=== PATIENT | male | born 1975 | race Caucasian/White ===

== ENCOUNTER → 2017-04-27 | Outpatient (CLI) | payer OTHER | END | disposition home or self-care (01) | LOC: C.RDSM 09:18 | PROVIDERS: ATTEND Orthopaedic Surgery Sports Medicine | DX: M25.572 Pain in left ankle and joints of left foot (principal) ==

== ENCOUNTER → 2017-07-22 | Day surgery (SDC) | payer OTHER ==
[2017-07-19 11:42] VITALS: Ht 175.3 cm; Wt 109.1 kg
[~2017-07-22] VITALS: Ht 175.3 cm; Wt 109.1 kg
[~2017-07-22] MED LIST: ATROPINE SULFATE 0.1 MG/ML 5ML SYR IV PRN; BUPIVACAINE/EPINEPHRINE 0.25% 1:200,000 30 ML VIAL ONE; BUPIVACAINE/EPINEPHRINE 0.5% MPF 1:200,000 30 ML VIAL ONE; CEFAZOLIN 2000MG IV PUSH 10 ML IV SCH; DEXAMETHASONE SOD INJ 4 MG/ML VIAL ONE; EpHEDrine SULFATE INJ 50 MG/ML AMP IV PRN; FENTANYL CITRATE INJ 50 MCG/1 ML 2 ML VIAL IV PRN; FENTANYL CITRATE INJ 50 MCG/1 ML 2 ML VIAL ONE; LACTATED RINGER'S 1000ML 1,000 ML IV SCH; LIDOCAINE HCL 1% 20 ML VIAL ONE; LIDOCAINE HCL 2% 2 ML VIAL (20MG/ML) ONE; MIDAZOLAM HCL 1 MG/ML 2ML VIAL ONE; MoRPHine SULFATE 2 MG/ML CARP IV PRN; MoRPHine SULFATE 4 MG/ML 1 ML CARP\\VIAL IV PRN; ONDANSETRON INJ 2 MG/ML 2 ML VIAL IV PRN; ONDANSETRON INJ 2 MG/ML 2 ML VIAL ONE; OXYCODONE/ACETAMINOPHEN 5-325 TAB PO PRN; PROPOFOL IV EMULSION 10 MG/ML 20 ML VIAL IV ONE
--- NOTE | 2017-07-22 09:38 | History and Physical ---
History & Physical Date of Service Jul 22, 2017. History & Physical Chief Complaint: Left ankle pain HPI: This 41 yo M is an inmated at [facility] with complaint of hardware protrusion from Left ankle. Pt had prior Lt ankle ORIF. Pt c/o pain with activity. Pt was evaluated by Dr. Galaviz at [facility] on 04/27/2017, had x-rays performed and discussed surgical intervention to alleviate his issue. Pt denies any new/recent injury, open skin areas, discharge, numbness or tingling or calf pain. Past Medical History 1. Bipolar disorder 2. Low back pain Past Surgical History 1. Lumbar spine 2. Left ankle ORIF 3. Nasal surgery 4. Stomach surgery Family History: Noncontributory Social History: Denies alcohol, tobacco or illicit drug use Medications: None Allergies: NKDA ROS: Denies headache, chest pain, SOB, fever, chills or night sweats. Physical Exam: General: well-built male with no acute distress, pleasant, accompanied by 2 correctional officers. HEENT: head atraumatic and Normocephalic. Eyes: PERRLA with EOM intact Ears: Clear of cerumen with intact TM's Nose: [place] boggy turbs w/o rhinorrhea Throat: Posterior oropharynx normal in appearance w/o edema, erythema or exudate Cardiac: regular rate and rhythm with absence of murmurs or gallops Lungs: Clear to auscultation throughout with absence of wheezing, rales or rhonchi. Abdomen: soft, non-obese, non-distended with normoactive bowel sounds. Extremities: Left ankle: significant protrusion of distal most screw about distal fibula with tenderness to palpation. No open areas, discharge, erythema, ecchymosis or warmth appreciated. Neuro: CN II-XII intact with no motor or sensory deficit noted Psych: A&O x 3 with proper grooming and hygiene. X-rays: post surgical changes with plate and screw fixation about left distal fibula. Distal screw appears loose and protruding. No acute fx/derangement. Diagnosis: Loose retained hardware, left ankle Procedure: Hardware removal Left ankle Plan: Pt will undergo this procedure with Dr. Chaparro Galaviz [place] [facility]. Risks and complications of the surgery were discussed with Dr. Galaviz at patients clinic visit. Pt understood and agreed, and consent form was signed. At this point there is no clinic indication for preoperative testing or medical clearance. Pt has a set of crutches and will possibly be given an Rx for Rolfe 5/325mg for postoperative pain control. F/u with Dr. Galaviz in 2 wks for suture removal. Ice, elevate and rest after surgery. With any questions have medical staff at [facility] contact our clinic at .
--- NOTE | 2017-07-22 12:24 | Discharge Instructions-SurgCtr ---
Discharge Instructions Date of Service Jul 22, 2017. Visit Reason for Visit: Left Ankle Loose Retained Hardware Discharge Discharge Diagnosis / Problem: Status post Hardware removal Left ankle Discharge Goals Goal(s): Decrease discomfort Activity Recommendations Activity Limitations: per Instructions/Follow-up section Exercise/Sports Limitations: gradually increase as tolerated May Resume Sexual Activity: when tolerated Shower/Bathe: may shower/bathe in 3 days Weightbearing Status: Right weightbearing (as tolerated) Anesthesia . Post Anesthesia Instructions: If you have had General Anesthesia or IV Sedation: * Do not drive today. * Resume driving when surgeon permits. * Do not make important decisions or sign legal documents today. * Call surgeon for: 1. Temperature elevations greater than 101 degrees F. 2. Uncontrollable pain. 3. Excessive bleeding. 4. Persistent nausea and vomiting. 5. Medication intolerance (nausea, vomiting or rash). * For nausea and vomiting use only clear liquids such as: tea, soda, bouillon until nausea subsides, then gradually increase diet as tolerated. * If you have any concerns or questions, call your surgeon's office. If physician is unavailable and it is an emergency, call 911 or go to the nearest emergency room. . Instructions / Follow-Up Instructions / Follow-Up Dr. Galaviz in 10-15 days. Diet Recommendations Home Diet: resume previous diet Procedures Procedures Performed: Removal Hardware Right ankle Pending Studies Studies pending at discharge: no Medical Emergencies . Who to Call and When: Medical Emergencies: If at any time you feel your situation is an emergency, please call 911 immediately. . Non-Emergent Contact Non-Emergency issues call your: Surgeon Call Non-Emergent contact if: temperature is above 101.5, your pain is not controlled, wound has increased drainage, wound has increased redness . . "Provider Documentation" section prepared by Chaparro Galaviz. .
[2017-07-22 12:40] VITALS: BP 126/76; PULSE 60; TEMP 36.5; O2SAT 95
--- NOTE | 2017-07-22 12:47 | [facility] Post Operative Brief Note ---
Immediate Operative Summary Operative Date Jul 22, 2017. Pre-Operative Diagnosis Retained hardware Left ankle Post-Operative Diagnosis Same Procedure(s) Performed Removal Hardware Left ankle Surgeon Anastacia Media Monitor Surgeon(s) Hilda Estimated Blood Loss 2 Findings Hypertrophied soft tissue around most inferior screw Left ankle. No evidence of infection. Fluids (cc crystalloids) 700 Specimens Soft tissue Left ankle Drains n/a Anesthesia Local + sedation Complication(s) None Disposition Recovery Room / PACU (Stable)
--- NOTE | 2017-07-22 12:48 | [facility] Operative Report ---
Operative Report Operative Date Jul 22, 2017. Pre-Operative Diagnosis Retained hardware Left ankle Post-Operative Diagnosis Same Procedure(s) Performed Removal Hardware Left ankle Surgeon Anastacia Senior Risk Analyst Surgeon(s) Hilda Estimated Blood Loss 2 Findings No evidence of infection. Prominent screw at the most distal aspect of the ankle, previous ORIF, was encapsulated with hypertrophic soft tissue. Fluids (cc crystalloids) 700 Specimens Soft tissue Left ankle Drains n/a Anesthesia Local + sedation Complication(s) None Disposition Recovery Room / PACU (Stable) Implants n/a Indications The patient is a 42 male with a history of previous left ankle open reduction internal fixation, with painful retained hardware, that is very prominent and has backed out approximately 50% on x-ray. The patient understands the risks of surgery, which include but are not limited to: bleeding, infection, re- operation, damage to nerves and arteries, continued pain, being unable to remove all of the hardware, and DVT. The patient understands all of these instructions and explanations, all of their questions have been satisfactorily addressed. The patient has elected to proceed with surgery and the informed consent was signed. Description of Procedure The patient was taken to the Operating Room and placed in the supine position on the operating table. After local sedation had taken appropriate affect, a multidisciplinary time-out was performed identifying my initials on the left limb as the correct and operative limb. Prior to any incisions, 2 grams of intravenous Ancef were given. The left leg was prepped and draped in the usual Orthopaedic sterile fashion. The area directly over the most prominent aspect of the screw laterally was marked. The planned incision approximately 1 cm and a superficial peroneal nerve block was performed by injecting with a 50:50 mixture of 1% lidocaine and 0.5 % Marcaine with epi for a total of 4 cc. The skin was incised and carried down through hypertrophic scar to expose the screw head. Using the appropriate screwdriver, the screw was easily removed. There is no evidence of infection. The hypertrophic soft tissue under the skin and covering the area where the screw had previously been located was carefully excised sharply with Metzenbaum and scalpel. There is no evidence of infection. The wound was copiously irrigated with normal saline. The skin were closed with 4-0 nylon in a horizontal mattress fashion. The limb was cleaned and dried. The wound was covered Xeroform, 2 x 2's, Tegaderm and an BONILLA. The sponge and needle counts were correct. POST-OP: Patient will be weightbearing as tolerated. He will follow-up with Dr. Galaviz in 10-15 days. I attest to the content of the Intraoperative Record and any orders documented therein. Any exceptions are noted below.
--- NOTE | 2017-07-22 13:12 | Anesthesia Progress Nt - [facility] ---
Anesthesia Post Op Note Date & Time Jul 22, 2017 at 13:12 Vital Signs Pain Intensity: 0 Vital Signs Past 12 Hours Date Time Temp Pulse Resp B/P (MAP) Pulse Ox O2 Delivery O2 Flow Rate FiO2 07/22/17 12:40 36.5 60 16 126/76 (93) 95 Room Air 07/22/17 09:30 36.8 54 20 129/86 (100) 97 Room Air Notes Mental Status: alert / awake / arousable, participated in evaluation Pt Amnestic to Procedure: Yes Nausea / Vomiting: adequately controlled Pain: adequately controlled Airway Patency, RR, SpO2: stable & adequate BP & HR: stable & adequate Hydration State: stable & adequate Anesthetic Complications: no major complications apparent
== END | disposition home or self-care (01) ==
LOC: MERGE 07:00 → X.SURG 09:12
PROVIDERS: ATTEND Orthopaedic Surgery Sports Medicine
DX: T84.127A Displacement of internal fixation device of bone of left lower leg, initial encounter (principal); X58.XXXA Exposure to other specified factors, initial encounter; M54.5 Low back pain; F31.9 Bipolar disorder, unspecified